=== PATIENT | female | born 1945 | race Asian ===

== ENCOUNTER 2021-08-19 13:02 | Emergency (ER) | payer OTHER, MEDICARE ==
[~2021-08-19] VITALS: Ht 157.5 cm; Wt 53.5 kg
[2021-08-19 13:16] VITALS: BP_SYST 97
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
--- NOTE | 2021-08-19 19:00 | NUR ---
Dr Ruiz evaluating patient at bedside
[2021-08-19 19:22] VITALS: BP_SYST 97
--- NOTE | 2021-08-19 19:25 | NUR ---
Patient given written and verbal discharge instructions and verbalizes understanding. ER MD discussed with patient the results and treatment provided. Patient in stable condition. ID arm band removed. No Rx given. Patient educated on pain management and to follow up with PMD. Pain Scale 0/10 Opportunity for questions provided and answered. Medication side effect fact sheet provided.
== END 2021-08-19 19:22 | disposition home or self-care (01) ==
LOC: SED 13:02
DX: S16.1XXA Strain of muscle, fascia and tendon at neck level, initial encounter (principal); S09.90XA Unspecified injury of head, initial encounter; E11.9 Type 2 diabetes mellitus without complications; I10 Essential (primary) hypertension; Z79.899 Other long term (current) drug therapy; V89.2XXA Person injured in unspecified motor-vehicle accident, traffic, initial encounter; Y93.89 Activity, other specified; Y92.89 Other specified places as the place of occurrence of the external cause; Y99.8 Other external cause status
CPT/HCPCS: 70450-TC; 72125-TC; 76376; 93005; 99284